=== PATIENT | female | born 1955 | race Two or more races ===

== ENCOUNTER 2017-08-17 11:04 | Outpatient (CLI) | payer OTHER | END 2017-08-17 11:21 | disposition home or self-care (01) | LOC: RAD 11:04 | DX: S99.921A Unspecified injury of right foot, initial encounter (principal) ==

== ENCOUNTER → 2017-08-17 | Outpatient (CLI) | payer OTHER ==
[~2017-08-17] MED LIST: PROTONIX40 MG PO
== END | disposition home or self-care (01) ==
LOC: PPHC 08:13
DX: S90.111A Contusion of right great toe without damage to nail, initial encounter (principal); W20.8XXA Other cause of strike by thrown, projected or falling object, initial encounter; Y93.89 Activity, other specified; Y92.89 Other specified places as the place of occurrence of the external cause; Y99.8 Other external cause status

== ENCOUNTER 2017-12-04 07:11 | Outpatient (CLI) | payer OTHER | END 2017-12-04 07:19 | disposition home or self-care (01) | LOC: RAD 07:11 | DX: M17.0 Bilateral primary osteoarthritis of knee (principal) ==

== ENCOUNTER 2018-08-14 11:08 | Outpatient (CLI) | payer OTHER | END 2018-08-14 11:24 | disposition home or self-care (01) | LOC: MAMO-SONO 11:08 | DX: N60.11 Diffuse cystic mastopathy of right breast (principal); N60.12 Diffuse cystic mastopathy of left breast; Z12.31 Encounter for screening mammogram for malignant neoplasm of breast ==

== ENCOUNTER → 2018-08-14 | Outpatient (CLI) | payer OTHER | END | disposition home or self-care (01) | LOC: NUCLEAR 11:47 | DX: M81.0 Age-related osteoporosis without current pathological fracture (principal) ==

== ENCOUNTER 2019-12-20 13:26 | Emergency (ER) | payer OTHER ==
[~2019-12-20] VITALS: Ht 162.6 cm; Wt 77.1 kg
== END 2019-12-20 20:09 | disposition home or self-care (01) ==
LOC: ER 13:26
DX: I80.292 Phlebitis and thrombophlebitis of other deep vessels of left lower extremity (principal); I73.9 Peripheral vascular disease, unspecified

== ENCOUNTER 2020-03-30 08:29 | Outpatient (CLI) | payer OTHER | END 2020-03-30 08:50 | disposition home or self-care (01) | LOC: MAMO-SONO 08:29 | PROVIDERS: ATTEND Obstetrics & Gynecology | DX: Z12.31 Encounter for screening mammogram for malignant neoplasm of breast (principal); N60.11 Diffuse cystic mastopathy of right breast; N60.12 Diffuse cystic mastopathy of left breast ==

== ENCOUNTER 2021-03-17 08:00 | Outpatient (CLI) | payer OTHER | END 2021-03-17 08:30 | disposition home or self-care (01) | LOC: PPH VACUNA 08:00 | PROVIDERS: ATTEND Emergency Medicine Pediatric Emergency Medicine | DX: Z23 Encounter for immunization (principal) ==

== ENCOUNTER 2021-08-21 08:00 | Outpatient (CLI) | payer OTHER | END 2021-08-21 08:30 | disposition home or self-care (01) | LOC: PPH VACUNA 08:00 | PROVIDERS: ATTEND Emergency Medicine Pediatric Emergency Medicine | DX: Z23 Encounter for immunization (principal) ==

== ENCOUNTER 2021-09-06 10:53 | Outpatient (CLI) | payer OTHER | END 2021-09-06 10:54 | disposition home or self-care (01) | LOC: NUCLEAR 10:53 | PROVIDERS: ATTEND Obstetrics & Gynecology | DX: N60.12 Diffuse cystic mastopathy of left breast (principal); N60.11 Diffuse cystic mastopathy of right breast; Z12.31 Encounter for screening mammogram for malignant neoplasm of breast ==

== ENCOUNTER 2021-09-06 11:34 | Outpatient (CLI) | payer OTHER | END 2021-09-06 11:44 | disposition home or self-care (01) | LOC: MAMO-SONO 11:34 | PROVIDERS: ATTEND Obstetrics & Gynecology | DX: Z12.31 Encounter for screening mammogram for malignant neoplasm of breast (principal); N60.11 Diffuse cystic mastopathy of right breast; N60.12 Diffuse cystic mastopathy of left breast ==

== ENCOUNTER 2022-04-20 08:24 | Outpatient (CLI) | payer OTHER | END 2022-04-20 08:34 | disposition home or self-care (01) | LOC: PPH VACUNA 08:24 | PROVIDERS: ATTEND Emergency Medicine Pediatric Emergency Medicine | DX: Z23 Encounter for immunization (principal) ==

== ENCOUNTER 2022-09-04 | Outpatient (CLI) | payer OTHER | END 2022-09-04 00:15 | disposition home or self-care (01) | LOC: PPH VACUNA | PROVIDERS: ATTEND Emergency Medicine Pediatric Emergency Medicine | DX: Z23 Encounter for immunization (principal) ==

== ENCOUNTER 2023-01-10 08:42 | Outpatient (CLI) | payer OTHER | END 2023-01-10 14:01 | disposition home or self-care (01) | LOC: MAMO-SONO 08:42 | PROVIDERS: ATTEND Obstetrics & Gynecology | DX: N60.11 Diffuse cystic mastopathy of right breast (principal); N60.12 Diffuse cystic mastopathy of left breast; Z12.31 Encounter for screening mammogram for malignant neoplasm of breast ==

== ENCOUNTER 2023-06-26 05:29 | Emergency (ER) | payer OTHER ==
[~2023-06-26] VITALS: Ht 162.6 cm; Wt 86.2 kg
[2023-06-26] MEDS ORDERED: PROMETHAZINE HCL 25 MG/ML AMPUL IM STA (07:27)
[2023-06-26 08:18] LABS: HEMATOCRIT 41.9 % (36.0-45.00); HEMOGLOBIN 14.3 g/dL (12.0-15.00); MEAN CELL VOLUME 90.5 fL (80.00-100.00); MEAN CORPUSCULAR HEMOGLOBIN 30.9 pg (27.00-32.0); MEAN CORPUSCULAR HGB CONC 34.1 g/dl (32.0-36.0); PLATELET COUNT 329 K/uL (150-450); RED BLOOD COUNT 4.63 M/uL (4.00-6.00); RED CELL DISTRIBUTION WIDTH 13.4 % (11.5-14.5)
[2023-06-26 08:37] LABS: URINE APPEARANCE Clear; URINE BILIRRUBIN Negative (NEGATIVE); URINE BLOOD Negative; URINE COLOR Yellow; URINE GLUCOSE Negative (NEGATIVE); URINE LEUKOCYTE Negative; URINE NITRATE Negative; URINE PROTEIN Negative (NEGATIVE); URINE UROBILINOGEN 0.2 E.U./dl
[2023-06-26 08:38] LABS: URINE BACTERIA 70.4 uL (0.0-1933); URINE EPITHELIAL CELLS 2.3 uL (0.0-38.8); URINE WBC 5.9 uL (0.0-23.2)
[2023-06-26 08:40] LABS: URINE RBC 0.7 uL (0.0-20.8)
[2023-06-26 09:00] LABS: CALCIUM 9.5 mg/dL (8.5-10.1); CREATININE SERUM 0.74 mg/dL (0.55-1.02); GFR 78.52; POTASSIUM 4.35 mEq/L (3.5-5.1)
[2023-06-26] MEDS ORDERED: MECLIZINE HCL 25 MG TABLET PO STA (11:01)
== END 2023-06-26 11:26 | disposition home or self-care (01) ==
LOC: ER
PROVIDERS: General Practice
DX: R42 Dizziness and giddiness (principal)

== ENCOUNTER 2023-12-17 07:48 | Emergency (ER) | payer OTHER ==
[~2023-12-17] VITALS: Ht 162.6 cm; Wt 88.5 kg
[2023-12-17] MEDS ORDERED: KETOROLAC TROMETHAMINE 60 MG VIAL IM STA (08:33)
== END 2023-12-17 09:53 | disposition home or self-care (01) ==
LOC: ER 07:48
DX: S42.254A Nondisplaced fracture of greater tuberosity of right humerus, initial encounter for closed fracture (principal); W18.39XA Other fall on same level, initial encounter; Y93.89 Activity, other specified; Y92.89 Other specified places as the place of occurrence of the external cause; Y99.9 Unspecified external cause status

== ENCOUNTER 2023-12-31 11:56 | Outpatient (CLI) | payer OTHER | END 2023-12-31 12:06 | disposition home or self-care (01) | LOC: RAD 11:56 | PROVIDERS: ATTEND Orthopaedic Surgery | DX: S42.251A Displaced fracture of greater tuberosity of right humerus, initial encounter for closed fracture (principal) ==

== ENCOUNTER 2024-01-08 07:33 | Outpatient (CLI) | payer OTHER | END 2024-01-08 07:43 | disposition home or self-care (01) | LOC: RAD 07:33 | PROVIDERS: ATTEND Orthopaedic Surgery | DX: S42.251A Displaced fracture of greater tuberosity of right humerus, initial encounter for closed fracture (principal) ==

== ENCOUNTER 2024-02-03 07:17 | Outpatient (CLI) | payer OTHER | END 2024-02-03 07:27 | disposition home or self-care (01) | LOC: MRI 07:17 | PROVIDERS: ATTEND Physical Medicine & Rehabilitation | DX: M25.511 Pain in right shoulder (principal); S42.301A Unspecified fracture of shaft of humerus, right arm, initial encounter for closed fracture | CPT/HCPCS: 73221 ==

== ENCOUNTER 2024-02-26 07:22 | Outpatient (CLI) | payer OTHER | END 2024-02-26 07:29 | disposition home or self-care (01) | LOC: MAMO-SONO 07:22 | PROVIDERS: ATTEND Obstetrics & Gynecology | DX: N60.11 Diffuse cystic mastopathy of right breast (principal); N60.12 Diffuse cystic mastopathy of left breast ==

== ENCOUNTER 2024-03-02 12:32 | Outpatient (CLI) | payer OTHER | END 2024-03-02 12:35 | disposition home or self-care (01) | LOC: NUCLEAR 12:32 | PROVIDERS: ATTEND Physical Medicine & Rehabilitation | DX: M81.0 Age-related osteoporosis without current pathological fracture (principal) ==

== ENCOUNTER 2024-04-08 14:30 | Outpatient (CLI) | payer OTHER | END 2024-04-08 14:43 | disposition home or self-care (01) | LOC: RAD 14:30 | PROVIDERS: ATTEND Orthopaedic Surgery | DX: S42.231D 3-part fracture of surgical neck of right humerus, subsequent encounter for fracture with routine healing (principal) ==